=== PATIENT | male | born 1980 ===

== ENCOUNTER 2018-08-02 21:50 | Emergency (ER) | payer OTHER ==
[2018-08-02 22:05] VITALS: BP 150/88; PULSE 73; RESP 16; TEMP 98.6; O2SAT 98
--- NOTE | 2018-08-02 22:37 | ED PDOC ---
HPI: General Adult Time Seen by Provider: 08/02/18 22:19 Chief Complaint (Nursing): Weakness/Neurological Deficit Chief Complaint (Provider): left arm tingling History Per: Patient History/Exam Limitations: no limitations Onset/Duration Of Symptoms: Hrs (1.5) Current Symptoms Are (Timing): Still Present Additional Complaint(s): 38 y/o male presents for evaluation of "tingling" to left arm x 1.5 hours. Patient states he was watching tv around 20:30 when his left upper back behind his shoulder area started to feel "sun-burned". Patient states about 30 mins to an hour later he developed "tingling" to the left forearm, from the left elbow to the left wrist. Patient denies headache, dizziness, neck pain, left shoulder pain, left arm pain/weakness, back pain, chest pain, shortness of breath, palpitations NIHSS Stroke Scale - Date/Time Evaluation Performed Date Performed: 08/02/18 Time Performed: 22:30 When Was NIHSS Performed: Baseline - How Severe is the Stroke Level of Consciousness: 0=Alert LOC to Questions: 0=Both comments correct LOC to commands: 0=Obeys both correctly Best Gaze: 0=Normal Visual: 0=No visual loss Facial: 0=Normal Motor Arm - Left: 0=No drift Motor Arm - Right: 0=No drift Motor Leg - Left: 0=No drift Motor Leg - Right: 0=No drift Limb Ataxia: 0=Absent Sensory: 0=Normal Best Language: 0=No aphasia Dysarthia: 0=Normal articulation Extinction & Inattention (Neglect): 0=Normal, no object Score: 0 Past Medical History Reviewed: Historical Data, Nursing Documentation, Vital Signs Vital Signs: Last Vital Signs Temp 98.6 F 08/02/18 22:03 Pulse 73 08/02/18 22:03 Resp 16 08/02/18 22:03 BP 150/88 08/02/18 22:03 Pulse Ox 98 08/02/18 22:03 Primary Care Provider: NORA ELDER - Medical History PMH: HTN - Surgical History Surgical History: No Surg Hx - Family History Family History: States: No Known Family Hx - Social History Current smoker - smoking cessation education provided: No Alcohol: None Drugs: Denies - Allergies Allergies/Adverse Reactions: Allergies Allergy/AdvReac Type Severity Reaction Status Date / Time No Known Allergies Allergy Verified 08/02/18 22:03 Review of Systems ROS Statement: Except As Marked, All Systems Reviewed And Found Negative Neurological: Positive for: Numbness (left forearm) Physical Exam - Reviewed Nursing Documentation Reviewed: Yes Vital Signs Reviewed: Yes - Physical Exam Appears: Positive for: Well, Non-toxic, No Acute Distress Head Exam: Positive for: ATRAUMATIC, NORMAL INSPECTION, NORMOCEPHALIC Skin: Positive for: Normal Color Eye Exam: Positive for: Normal appearance ENT: Positive for: Normal ENT Inspection Cardiovascular/Chest: Positive for: Regular Rate, Rhythm Respiratory: Positive for: Normal Breath Sounds Gastrointestinal/Abdominal: Positive for: Normal Exam Back: Positive for: Normal Inspection Extremity: Positive for: Normal ROM Neurological/Psych: Positive for: Awake, Alert, Oriented (x3). Negative for: Motor/Sensory Deficits - ECG ECG: Positive for: Viewed By Me (reviewed by ED attending) ECG Rhythm: Positive for: Sinus Rhythm O2 Sat by Pulse Oximetry: 98 - CT Scan/US CT head Other Rad Studies (CT/US): Radiology Report Reviewed ([place] rad prelim) Other Rad Interpretation: no acute findings - Progress ED Course And Treament: -cbc -cmp -troponin -ekg -CT head patient refusing lab work; states tingling has lessened in intensity and he would like to go home. Case discussed with ED attending Dr. Wasserman; agrees with plan to d/c and outpatient neuro follow up Patient was advised to follow up with a Neurologist for further evaluation. Advised ASA daily, states he will pick some up when he leaves. Return precautions given Disposition - Clinical Impression Clinical Impression: Paresthesia of left upper extremity - Patient ED Disposition Is Patient to be Admitted: No Counseled Patient/Family Regarding: Studies Performed, Diagnosis, Need For Followup - Disposition Disposition: Routine/Home Disposition Time: 01:00 Condition: IMPROVED Instructions: Paresthesias (DC)
--- NOTE | 2018-08-03 10:03 | CT ---
Date of service: 08/02/2018 PROCEDURE: CT HEAD WITHOUT CONTRAST. HISTORY: left arm tingling COMPARISON: 05/06/2012. TECHNIQUE: Axial computed tomography images were obtained through the head/brain without intravenous contrast. Supplemental Coronal and Sagittal projections created and reviewed. Radiation dose: Total exam DLP = 798.99 mGy-cm. This CT exam was performed using one or more of the following dose reduction techniques: Automated exposure control, adjustment of the mA and/or kV according to patient size, and/or use of iterative reconstruction technique. FINDINGS: HEMORRHAGE: No intracranial hemorrhage. BRAIN: No mass effect or edema. No atrophy or chronic microvascular ischemic changes. VENTRICLES: Unremarkable. No hydrocephalus. CALVARIUM: Unremarkable. PARANASAL SINUSES: Unremarkable as visualized. No significant inflammatory changes. MASTOID AIR CELLS: Unremarkable as visualized. No inflammatory changes. OTHER FINDINGS: None. IMPRESSION: No acute intracranial abnormalities. No significant findings to account for the clinical presentation. No significant interval change compared to the prior examination(s). Concordant results (preliminary interpretation) provided by [employer]. Procedure Completed: 23:08. Preliminary Report: Interpreted and electronically signed: 00:08. Final Interpretation: 09:59. August 03, 2018.
--- NOTE | 2018-08-03 11:25 | CARD ---
APPROVED REPORT Date of service: 08/02/2018 EKG Measurement Heart [id number] <Conclusion> Normal sinus rhythm Normal ECG
== END 2018-08-03 02:00 | disposition home or self-care (01) ==
LOC: H.ER 21:50
DX: R20.2 Paresthesia of skin (principal); I10 Essential (primary) hypertension